=== PATIENT | male | born 1970 | race Two or more races ===

== ENCOUNTER 2020-07-28 16:38 | Emergency (ER) | payer SELFPAY ==
[2020-07-28] MEDS ORDERED: methylPREDNISolone Sodium Succinate 125 MG/2 ML SDV IVPUSH ONE (17:08)
[2020-07-28] MEDS ORDERED: diphenhydrAMINE 50 MG/ML SDV IVPUSH ONE (17:08)
[2020-07-28] MEDS ORDERED: Sodium Chloride 0.9% 10 ML Syringe FLUSH PRN (17:08)
[2020-07-28] MEDS ORDERED: Sodium Chloride 0.9% 2.5 ML Syringe FLUSH PRN (17:08)
[2020-07-28] MEDS ORDERED: Sodium Chloride 0.9% 1,000 ML IV ONE (17:08)
[2020-07-28] MEDS ORDERED: Famotidine 20 MG/2 ML SDV IVPUSH ONE (17:08)
--- NOTE | 2020-07-28 17:13 | EDM.PDOC ---
ED HPI GENERAL MEDICAL PROBLEM - General Chief Complaint: Allergic Reaction Stated Complaint: POSSIBLE ALLERGIC REACTION Time Seen by Provider: 07/28/20 16:47 Source of Information: Reports: Patient History Limitations: Reports: No Limitations - History of Present Illness INITIAL COMMENTS - FREE TEXT/NARRATIVE: 41-year-old male no past medical history presents for presumptive allergic reaction. Roughly an an hour and a half ago patient was at a local restaurant and ate some shrimp. Roughly 30 minutes after eating the shrimp he began to note body hives, itching, scratchy throat. He also has some nausea without vomiting. Denies any shortness of breath. No history of shrimp allergy. - Related Data Allergies Allergy/AdvReac Type Severity Reaction Status Date / Time shrimp Allergy Hives Verified 07/28/20 16:55 Home Meds: Home Meds EPINEPHrine [Epipen 2-Raymundo] 0.3 mg IJ ASDIRECTED PRN #1 auto.injct 07/28/20 [Rx] RX: Non-Formulary Medication [NF Drug] 07/28/20 [History] RX: predniSONE 40 mg PO DAILY #10 tab 07/28/20 [Rx] Past Medical History Cardiovascular History: Reports: High Cholesterol, Hypertension - Infectious Disease History Infectious Disease History: Reports: None Social & Family History - Family History Family Medical History: No Pertinent Family History - Tobacco Use Tobacco Use Status *Q: Current Every Day Tobacco User Years of Tobacco use: 35 Packs/Tins Daily: 0.5 - Recreational Drug Use Recreational Drug Use: No ED ROS ALLERGIC REACTION - Review of Systems Review Of Systems: Comprehensive ROS is negative, except as noted in HPI. ED EXAM GENERAL NO PERIP PULSE - Physical Exam Exam: See Below Exam Limited By: No Limitations General Appearance: Alert, WD/WN, No Apparent Distress Throat/Mouth: Normal Voice, No Airway Compromise Head: Atraumatic, Normocephalic Neck: Normal Inspection Respiratory/Chest: No Respiratory Distress, Lungs Clear, Normal Breath Sounds, No Accessory Muscle Use Cardiovascular: Normal Peripheral Pulses, Regular Rate, Rhythm GI/Abdominal: Soft, Non-Tender Extremities: Normal Inspection Neurological: Alert, Normal Cognition Psychiatric: Normal Affect, Normal Mood Skin Exam: Warm, Dry, Intact, Other (urticarial rash on UE and trunk) Course - Vital Signs Last Recorded V/S: Last Vital Signs Temp 98.0 F 07/28/20 16:57 Pulse 89 07/28/20 16:57 Resp 20 07/28/20 16:57 BP 130/97 H 07/28/20 16:57 Pulse Ox 97 07/28/20 16:57 - Orders/Labs/Meds Orders: Active Orders 24 hr Category Date Time Status Sodium Chloride 0.9% [Normal Saline] 1,000 ml Med 07/28/20 17:08 Active IV .Bolus Sodium Chloride 0.9% [Saline Flush] Med 07/28/20 17:08 Active 10 ml FLUSH ASDIRECTED PRN Sodium Chloride 0.9% [Saline Flush] Med 07/28/20 17:08 Active 2.5 ml FLUSH ASDIRECTED PRN Saline Lock Insert [OM.PC] Stat Oth 07/28/20 17:08 Ordered Medication Orders Sodium Chloride (Normal Saline) 1,000 mls @ 999 mls/hr IV .Bolus ONE Stop: 07/28/20 18:08 Sodium Chloride (Sodium Chloride 0.9% 10 Ml Syringe) 10 ml FLUSH ASDIRECTED PRN PRN Reason: Keep Vein Open Sodium Chloride (Sodium Chloride 0.9% 2.5 Ml Syringe) 2.5 ml FLUSH ASDIRECTED PRN PRN Reason: Keep Vein Open Meds: Medications Generic Name Dose Route Start Last Admin Trade Name Freq PRN Reason Stop Dose Admin Sodium Chloride 1,000 mls @ 999 mls/hr 07/28/20 17:08 Normal Saline IV 07/28/20 18:08 .Bolus ONE Sodium Chloride 10 ml 07/28/20 17:08 Sodium Chloride 0.9% 10 Ml Syringe FLUSH ASDIRECTED PRN Keep Vein Open Sodium Chloride 2.5 ml 07/28/20 17:08 Sodium Chloride 0.9% 2.5 Ml Syringe FLUSH ASDIRECTED PRN Keep Vein Open Discontinued Medications Generic Name Dose Route Start Last Admin Trade Name Freq PRN Reason Stop Dose Admin Diphenhydramine HCl 50 mg 07/28/20 17:08 Diphenhydramine 50 Mg/Ml Sdv IVPUSH 07/28/20 17:09 ONETIME ONE Famotidine 20 mg 07/28/20 17:08 Famotidine 20 Mg/2 Ml Sdv IVPUSH 07/28/20 17:09 ONETIME ONE Methylprednisolone Sodium Succinate 125 mg 07/28/20 17:08 Methylprednisolone Sodium Succinate 125 Mg/2 Ml Sdv IVPUSH 07/28/20 17:09 ONETIME ONE - Re-Assessments/Exams Free Text/Narrative Re-Assessment/Exam: 07/28/20 17:10 We will treat with methylprednisolone, Benadryl, Pepcid, IV fluid bolus. No signs of anaphylaxis on physical exam. Will hobs for 1 hour and discharged with a short course of prednisone. Recommend avoiding shrimp. Departure - Departure Time of Disposition: 17:50 Disposition: Home, Self-Care 01 Condition: Good Clinical Impression: Allergic reaction Qualifiers: Encounter type: initial encounter Qualified Code(s): T78.40XA - Allergy, unspecified, initial encounter - Discharge Information Prescriptions: EPINEPHrine [Epipen 2-Raymundo] 0.3 mg IJ ASDIRECTED PRN #1 auto.injct PRN Reason: Allergies RX: predniSONE 40 mg PO DAILY #10 tab Instructions: Allergies, Adult, [id number] Forms: ED Department Discharge Additional Instructions: The following information is given to patients seen in the emergency department who are being discharged to home. This information is to outline your options for follow-up care. We provide all patients seen in our emergency department with a follow-up referral. The need for follow-up, as well as the timing and circumstances, are variable depending upon the specifics of your emergency department visit. If you don't have a primary care physician on staff, we will provide you with a referral. We always advise you to contact your personal physician following an emergency department visit to inform them of the circumstance of the visit and for follow-up with them and/or the need for any referrals to a consulting specialist. The emergency department will also refer you to a specialist when appropriate. This referral assures that you have the opportunity for follow-up care with a specialist. All of these measure are taken in an effort to provide you with optimal care, which includes your follow-up. Under all circumstances we always encourage you to contact your private physician who remains a resource for coordinating your care. When calling for follow-up care, please make the office aware that this follow-up is from your recent emergency room visit. If for any reason you are refused follow-up, please contact the [facility] Emergency Department at and asked to speak to the emergency department charge nurse. Please follow up with your primary care physician. If you do not have a primary care physician, see below: [facility] [address] [place], [place] [phone] My [facility] [address] [place], [place] [phone] [facility] [address] [place] [address] Sepsis Event Note (ED) - Evaluation Sepsis Screening Result: No Definite Risk - Focused Exam Vital Signs: Vital Signs Temp Pulse Resp BP Pulse Ox 07/28/20 16:57 98.0 F 89 20 130/97 H 97 - My Orders Last 24 Hours: My Active Orders 07/28/20 17:08 Sodium Chloride 0.9% [Normal Saline] 1,000 ml IV .Bolus Sodium Chloride 0.9% [Saline Flush] 10 ml FLUSH ASDIRECTED PRN Sodium Chloride 0.9% [Saline Flush] 2.5 ml FLUSH ASDIRECTED PRN Saline Lock Insert [OM.PC] Stat - Assessment/Plan Last 24 Hours: My Active Orders 07/28/20 17:08 Sodium Chloride 0.9% [Normal Saline] 1,000 ml IV .Bolus Sodium Chloride 0.9% [Saline Flush] 10 ml FLUSH ASDIRECTED PRN Sodium Chloride 0.9% [Saline Flush] 2.5 ml FLUSH ASDIRECTED PRN Saline Lock Insert [OM.PC] Stat
== END 2020-07-28 19:01 | disposition home or self-care (01) ==
LOC: MW.ED 16:38
DX: T78.40XA Allergy, unspecified, initial encounter (principal); I10 Essential (primary) hypertension; Z91.013 Allergy to seafood
CPT/HCPCS: 96374; 96375; 99283; J1200; J2930; J3490; J7030